=== PATIENT | female | born 1945 | race Caucasian/White ===

== ENCOUNTER 2016-08-23 10:50 | Emergency (ER) | payer OTHER, MEDICARE ==
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
[2016-08-23 12:02] VITALS: BP 138/92; PULSE 68; RESP 16; TEMP 97.5; O2SAT 97
== END 2016-08-23 12:02 | disposition home or self-care (01) ==
DX: S89.91XA Unspecified injury of right lower leg, initial encounter (principal); X58.XXXA Exposure to other specified factors, initial encounter; Y93.55 Activity, bike riding
CPT/HCPCS: 73564; 99283; L1830

== ENCOUNTER 2016-09-28 06:20 | Day surgery (SDC) | payer OTHER, MEDICARE ==
[~2016-09-28 06:20] MED LIST: ceFAZolin 2 GM/DEXTROSE 100 ML IV ONE
[2016-09-28] MEDS ORDERED: ONDANSETRON DISINTEGRATING 4 MG TAB PO PRN (06:45)
[2016-09-28] MEDS ORDERED: ONDANSETRON 4 MG/2 ML VIAL IVP PRN (06:45)
[2016-09-28] MEDS ORDERED: OXYCODONE/APAP 5/325 TAB PO PRN (06:45)
[2016-09-28] MEDS ORDERED: ACETAMINOPHEN 325 MG TAB PO ONE (07:29)
[2016-09-28] MEDS ORDERED: ceFAZolin 2 GM/DEXTROSE 100 ML IV ONE (07:29)
[2016-09-28] MEDS ORDERED: FAMOTIDINE 20 MG TAB PO ONE (07:29)
[2016-09-28] MEDS ORDERED: DEXAMETHASONE 4 MG/ML VIAL IVP ONE (07:29)
[2016-09-28] MEDS ORDERED: BUPIVACAINE/EPI 0.5% 30 ML SDV ONE (07:38)
[2016-09-28] MEDS ORDERED: EPINEPHrine 30 MG/30 ML MDV ONE (07:38)
[2016-09-28] MEDS ORDERED: LR 1,000 ML IV ONE (07:39)
[2016-09-28] MEDS ORDERED: LIDOCAINE 1% 2 ML INJ ID PRN (07:39)
[2016-09-28] MEDS ORDERED: LIDOCAINE 1% 2 ML INJ ONE (07:43)
--- NOTE | 2016-09-28 08:45 | PDANEPAE ---
ANE History of Present Illness ACL Tear ANE Past Medical History - Cardiovascular History Hx Hypertension: No Hx Arrhythmias: No Hx Chest Pain: No Hx Coronary Artery / Peripheral Vascular Disease: No Hx CHF / Valvular Disease: No Hx Palpitations: No - Pulmonary History Hx COPD: No Hx Asthma/Reactive Airway Disease: No Hx Recent Upper Respiratory Infection: No Hx Oxygen in Use at Home: No - Neurologic History Hx Cerebrovascular Accident: No Hx Seizures: No Hx Dementia: No - Endocrine History Hx Diabetes: No - Renal History Hx Renal Disorders: No - Liver History Hx Hepatic Disorders: No - Neurological & Psychiatric Hx Hx Neurological and Psychiatric Disorders: No - Cancer History Hx Cancer: No - Congenital Disorder History Hx Congenital Disorders: No - GI History Hx Gastrointestinal Disorders: No - Chronic Pain History Chronic Pain: No ANE Review of Systems - Exercise capacity METS (RN): 4 METS ANE Patient History - Allergies Allergies/Adverse Reactions: Sulfa (Sulfonamide Antibiotics) Allergy (Verified 08/23/16 10:54) - Home Medications Home medications: home medication list seen and reviewed Home Medications: Flonase Allergy Relief HS 08/23/16 [Last Taken 09/27/16] Herbal Drugs DAILY 09/10/16 [Last Taken 09/25/16] - NPO status NPO Since - Liquids (Date): 09/27/16 NPO Since - Liquids (Time): 21:00 NPO Since - Solids (Date): 09/27/16 NPO Since - Solids (Time): 19:30 - Anes Hx Anes Hx: no prior problems - Smoking Hx Smoking Status: Never smoked ANE Labs/Vital Signs - Vital Signs Blood Pressure: 140/84 Heart Rate: 68 Respiratory Rate: 16 O2 Sat (%): 94 Height: 171.45 cm Weight: 57.153 kg ANE Physical Exam - Airway Neck exam: FROM Mouth exam: normal dental/mouth exam - Pulmonary Pulmonary: clear to auscultation - Cardiovascular Cardiovascular: regular rate and rhythym - ASA Status ASA Status: I ANE Anesthesia Plan Anesthesia Plan: GA w LMA Regional Anesthesia: adductor canal FNB (Pending recommendation form [facility])
[2016-09-28] MEDS ORDERED: MIDAZOLAM 2 MG/2 ML VIAL IVP ONE (08:55)
[2016-09-28] MEDS ORDERED: MIDAZOLAM 2 MG/2 ML VIAL ONE (09:05)
--- NOTE | 2016-09-28 09:19 | PDHPUP ---
History & Physical Update H&P update statement: This history and physical update is based on an assessment of the patient which was completed after admission or registration (within 24 hours), but prior to the surgery/procedure. H&P update: H&P reviewed & patient examined, no change in patient's condition since H&P completed
[2016-09-28] MEDS ORDERED: fentaNYL 100 MCG/2 ML INJ ONE ×2 (09:33→11:03)
[2016-09-28] MEDS ORDERED: PROPOFOL 200 MG/20 ML VIAL ONE (09:34)
[2016-09-28] MEDS ORDERED: NALOXONE HCL 0.4 MG/ML INJ IVP PRN (10:09)
[2016-09-28] MEDS ORDERED: ONDANSETRON 4 MG/2 ML VIAL ONE (10:34)
[2016-09-28] MEDS ORDERED: DEXAMETHASONE 4 MG/ML VIAL ONE (10:34)
[2016-09-28] MEDS: fentaNYL 100 MCG/2 ML INJ IVP PRN ×4 (11:04→11:30)
--- NOTE | 2016-09-28 11:05 | POSTANESTH ---
Post Anesthetic Evaluation Cardiovascular Status: Normal, Stable Respiratory Status: Normal, Stable Level of Consciousness/Mental Status: Can Participate in Eval Pain Control: Adequate, Prn Tx Ordered Nausea/Vomiting Control: Adequate, Prn Tx Ordered Complications Possibly Related to Anesthesia: None Noted
[2016-09-28 11:25] VITALS: TEMP 97.7
[2016-09-28 12:21] VITALS: PULSE 56; RESP 16
[2016-09-28 13:49] VITALS: O2SAT 96
[2016-09-28 13:55] VITALS: BP 136/72
== END 2016-09-28 13:25 | disposition home or self-care (01) ==
LOC: FSGY 06:20
PROVIDERS: ATTEND Orthopaedic Surgery
PROC: 0MUN47Z Supplement Right Knee Bursa and Ligament with Autologous Tissue Substitute, Percutaneous Endoscopic Approach (ICD-10-PCS; principal; 2016-09-28 08:30)
DX: S83.511A Sprain of anterior cruciate ligament of right knee, initial encounter (principal); V19.9XXA Pedal cyclist (driver) (passenger) injured in unspecified traffic accident, initial encounter
CPT/HCPCS: C1713; C1762; J0690; J1100; J2250; J2405; J2704; J3010; L1832

== ENCOUNTER → 2018-07-12 | Outpatient (CLI) | payer OTHER, MEDICARE | LOC: BMCIMAGING 13:22 | PROVIDERS: ATTEND Physician Assistant | DX: M25.862 Other specified joint disorders, left knee (principal) ==

== ENCOUNTER → 2018-08-26 | Outpatient (CLI) | payer OTHER, MEDICARE | LOC: FIMAGING 15:39 | PROVIDERS: ATTEND Physician Assistant | DX: M25.562 Pain in left knee (principal) ==